=== PATIENT | male | born 1965 | race Caucasian/White ===

== ENCOUNTER 2020-01-28 17:05 | Emergency (ER) | payer OTHER, SELFPAY ==
[2020-01-28 17:06] VITALS: BP 141/100; PULSE 121; PULSE 123; RESP 14; RESP 16; TEMP 36.6; BMI 26.6
--- NOTE | 2020-01-28 17:43 | EKG12_ITS ---
Test Reason : Blood Pressure : / mmHG Vent. Rate : 110 BPM Atrial Rate : 110 BPM P-R Int : 126 ms QRS Dur : 108 ms QT Int : 352 ms P-R-T Axes : 037 021 -21 degrees QTc Int : 476 ms Sinus tachycardia Nonspecific ST and T wave abnormality Abnormal ECG Confirmed by MARIELA ESQUIVEL, AMMY ([id number]), features editor CHRISTINE KHAN ([id number]) on 02/05/2020 11:17:40 A M Referred By: KIRSTY Confirmed By:JAMES SIERRA MD
--- NOTE | 2020-01-28 17:43 | ED.VIS.GEN ---
History of Present Illness Chief Complaint: Chest Pain Informant: Patient Onset: - - Chronic Current Severity: Mild Maximum Severity: Mild Narrative: Patient presents with chest pain and elevated heart rate. Patient reports having chronic chest pain for the past several years. He has a history of lung cancer and had his left lung removed in 2012. He states since that time he is had chronic pain. It has been worsened somewhat lately. He does get worse with exertion and better with rest. Today he was at his PCPs office who noted his heart rate to be elevated and sent him to the ER for further evaluation. 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 He is currently on Sandostatin with mets noted to the liver and deep lymph nodes in his chest. Patient states when he goes to get his medication at [facility] they have been commenting for the past couple of months that his heart rate has been in the 120s. Patient reports having a cardiac cath about the time of his lung surgery and everything was clear. He also had pericarditis a couple years ago. 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 (2) H/O pneumonectomy Status: Resolved (3) Liver metastasis Status: Chronic Past Medical History - Allergies and Home Meds Allergies/Adverse Reactions: Allergies No Known Allergies Allergy (Verified 01/28/20 17:05) Primary Care Physician: Keli Floers MD [STAFF PHYSICIAN] - Prior records reviewed: Yes Lives: Spouse/ Significant Other Smoking Status: Never smoker Review of Systems General: Denies: Chills, Fever Eyes: Denies: Visual changes - bilaterally ENT: Denies: Bilateral ear pain Cardiovascular: Reports: Chest pain, Heart racing Respiratory: Denies: Dyspnea, Cough Gastrointestinal: Denies: Abdominal pain, Nausea, Vomiting, Diarrhea Musculoskeletal: Denies: Extremity Pain Skin: Denies: Rash Neurological: Denies: Headache Hematologic: Denies: Easy bruising, Easy bleeding Allergy: Denies: Uticaria Physical Exam Vital Signs/Narrative: Vital Signs Temp Pulse Resp BP 01/28/20 17:06 97.9 F 121 H 16 141/100 H Inital Vital Signs reviewed: Yes General: Well nourished, Well developed Head: Normocephalic ENT: Moist mucous membranes Neck: Supple Cardiovascular: Regular rhythm, Tachycardia Respiratory: No distress, CTA bilaterally - On right Abdomen: Soft, Nontender Extremities: Nontender, No edema Skin: Normal color Neurological: Alert, Oriented x3 Psychological: Normal affect Diagnostic/Tx/Re-eval Impressions Chest X-Ray 01/28/20 18:05 IMPRESSION: No significant interval change from the prior exam. No visualized consolidation in the right lung Electronically Signed: Johnny Lopez MD at 18:32 EDT , Service support , 01/28/20 18:05 Chest 1 View (Portable) [RAD] Stat Laboratory Results 01/28/20 01/28/20 01/28/20 17:37 17:37 17:37 WBC 8.1 RBC 4.93 Hgb 14.7 Hct 44.8 MCV 90.9 MCH 29.8 MCHC 32.8 RDW Std Deviation 40.6 RDW Coeff of Byron 12.2 Plt Count 268 MPV 9.0 Immature Gran % (Auto) 0.400 Neut % (Auto) 72.2 H Lymph % (Auto) 16.5 L [place] % (Auto) 9.3 Eos % (Auto) 1.4 Baso % (Auto) 0.2 Absolute Neuts (auto) 5.9 Absolute Lymphs (auto) 1.34 Nucleated RBC % 0 D-Dimer Quant (PE/DVT) 0.28 Sodium 138 Potassium 3.9 Chloride 103 Carbon Dioxide 32.0 Anion Gap 3 L BUN 9 Creatinine 1.12 Estim Creat Clear Calc 73.79 Est GFR (MDRD) Af Amer 88 Est GFR (MDRD) Non-Af 73 BUN/Creatinine Ratio 8.0 L Glucose 107 H Calcium 8.7 Troponin I < 0.015 TSH 1.03 - EKG Initial EKG Interpretation: Sinus Tachycardia - Sinus tach at 110. Nonspecific ST T wave changes noted. This is unchanged when compared to January 2013. I suspect this is secondary to his pneumonectomy and abnormal position of the heart in his chest. - Medical Decision Making Patient was given aspirin and IV fluids here. On repeat evaluation heart rate is 90 sitting at rest. I reviewed his prior EKG from 2012, the EKG done in the office today, as well as the EKG done on arrival to the ER. There have been no changes of the last 7 years. Patient has had chronic ongoing chest pain. He will follow-up with his PCP regarding any further outpatient testing that may be needed, I do not feel patient needs to be admitted to the hospital at this time for that. ED Disposition - Plan for ED Patient: Disposition: Home or Assisted Living Diagnosis: Atypical chest pain Instructions: ED Chest Pain Atypical Unkn Cause Additional Instructions: Follow-up with your PCP as discussed. Return for any worsened symptoms or concerns.
--- NOTE | 2020-01-28 18:05 | RAD_ITS ---
STUDY: X-RAY CHEST REASON FOR EXAM: Male, 54 years old. chest pain, Hx lung CA with mets History of pneumonectomy for lung carcinoma TECHNIQUE: Single AP portable view of the chest. COMPARISON: May 19, 2015 FINDINGS: Complete whiteout of the left hemithorax and leftward mediastinal shift unchanged from the prior study, partially related to known pneumonectomy. Surgical clips of the left suprahilar region reidentified. The right lung is clear. Normal size heart. Unremarkable osseous structures. Stimulating catheter seen in the upper thoracic spine. RAD/Chest 1 View (Portable) IMPRESSION: No significant interval change from the prior exam. No visualized consolidation in the right lung Electronically Signed: Johnny Lopez MD at 18:32 EDT , Service support ,
[2020-01-28 18:07] VITALS: PULSE 108; RESP 20; O2SAT 97
[2020-01-28 18:07] LABS: Absolute Lymphocyte Count 1.34 X10^3/uL (0.83-4.51); Absolute Neutrophil Count 5.9 X10^3/uL (2.0-7.7); Basophil# 0.02 X10^3/uL; Basophil% 0.2 % (0-1); Eosinophil# 0.11 X10^3/uL; Eosinophils% 1.4 % (0-5); Hematocrit 44.8 % (40-54); Hemoglobin 14.7 g/dL (13.0-16.5); Lymphocyte # 1.34 X10^3/ul (4.0); Lymphocyte % 16.5 % (19-41); Mean Corp Hgb Conc 32.8 g/dL (32-36); Mean Corpuscular Hgb 29.8 pg (27.0-32.0); Mean Corpuscular Volume 90.9 fL (80-94); Monocyte# 0.76 X10^3/uL; Monocyte% 9.3 % (0-10); NRBC Flagged by Analyzer 0 % (0-5); Neutrophil # 5.88 X10^3/uL (2.7-7.7); Neutrophil % 72.2 % (47-70); Platelet Count 268 K/mm3 (150-450); RBC Distribution Width CV 12.2 % (11.6-14.6); RBC Distribution Width SD 40.6 fl (35.1-43.9); Red Blood Count 4.93 M/mm3 (4.6-6.2); White Blood Count 8.1 K/mm3 (4.4-11.0)
[2020-01-28 18:21] LABS: D-Dimer Quantitative (DVT/PE) 0.28 FEU/ug/m (0.27-0.49)
[2020-01-28] MEDS: Aspirin 81 MG TAB.CHEW 324 MG PO (18:21)
[2020-01-28] MEDS: 0.9% Normal Saline 1,000 ML 150 ML IV (18:21)
[2020-01-28 18:36] LABS: Anion Gap 3 (5-15); BUN 9 mg/dL (7-18); Calcium,Total 8.7 mg/dL (8.5-10.1); Chloride 103 mmol/L (98-107); Creatinine, Serum 1.12 mg/dL (0.70-1.30); EST Glomerular Filtration Rate 73 mL/min (>60); Est Glom Filt Rate - Afr Amer 88 mL/min (>60); Estimated Creatinine Clearance 73.79 ml/min; Glucose 107 mg/dL (74-106); Potassium 3.9 mmol/L (3.5-5.1); Sodium Level 138 mmol/L (136-145); Thyroid Stim Hormone (TSH) 1.03 uIU/mL (0.358-3.74)
== END 2020-01-28 19:38 | disposition home or self-care (01) ==
PROVIDERS: Emergency Provider Emergency Medicine
DX: R07.89 Other chest pain (principal); G89.29 Other chronic pain; C7B.01 Secondary carcinoid tumors of distant lymph nodes; C7B.02 Secondary carcinoid tumors of liver; Z79.899 Other long term (current) drug therapy; Z85.118 Personal history of other malignant neoplasm of bronchus and lung; Z90.2 Acquired absence of lung [part of]
CPT/HCPCS: 71045; 80048; 84443; 84484; 85025; 85379; 93005; 96360; 99284; J7030; A4216